=== PATIENT | female | born 1990 | race Asian ===

== ENCOUNTER 2016-12-18 04:05 | Inpatient (IN) | payer OTHER ==
[~2016-12-18] VITALS: Ht 162.6 cm; Wt 75.9 kg
[2016-12-26] MEDS ORDERED: LACTATED RINGER'S 1000ML 1,000 ML IV PRN (07:37)
[2016-12-26] MEDS ORDERED: LACTATED RINGER'S 1000ML 500 ML IV PRN ×2 (07:37→14:22)
[2016-12-26] MEDS ORDERED: OXYTOCIN 30 UNITS/500ML NSS IV PRN (07:45)
[2016-12-26] MEDS ORDERED: PRENTAB26 PO (08:10)
[2016-12-26 08:12] VITALS: Ht 162.6 cm; Wt 75.9 kg
[2016-12-26] MEDS: LACTATED RINGER'S 1000ML 1,000 ML IV SCH ×3 (08:43→22:42)
[2016-12-26 08:50] LABS: MEAN CELL VOLUME 94.4 fL (80-100); MEAN CORPUSCULAR HEMOGLOBIN 31.6 pg (25-34); MEAN CORPUSCULAR HGB CONC 33.5 g/dl (32-36); MEAN PLATELET VOLUME 12.1 fL (7.4-10.4); PLATELET COUNT 176 K/uL (130-400); RED BLOOD COUNT 3.92 M/uL (4.2-5.4); WHITE BLOOD COUNT 7.49 K/uL (4.8-10.8)
[2016-12-26] MEDS ORDERED: FENTANYL CITRATE INJ 50 MCG/1 ML 2 ML VIAL ONE (13:11)
[2016-12-26] MEDS ORDERED: BUPIVACAINE 0.25% 30 ML VIAL ONE (13:11)
[2016-12-26] MEDS ORDERED: EpHEDrine SULFATE INJ 50 MG/ML AMP ONE (13:11)
[2016-12-26] MEDS ORDERED: FENTANYL 2MCG/ML ROPIV 1.25MG/ML 100ML BAG EPI ONE (13:12)
[2016-12-26] MEDS ORDERED: NALOXONE HCL INJ 1 MG in SODIUM CHLORIDE 0.9% 1000ML 1,000 ML IV PRN (14:22)
[2016-12-26] MEDS ORDERED: EpHEDrine SULFATE INJ 50 MG/ML AMP IV PRN (14:30)
[2016-12-26] MEDS ORDERED: NALOXONE HCL INJ 0.4 MG/1 ML VIAL/CARP IV PRN (14:30)
[2016-12-26] MEDS ORDERED: DiphenhydrAMINE HCL 50 MG/ML VIAL IV PRN (14:30)
[2016-12-26] MEDS ORDERED: NALBUPHINE HCL INJ 10 MG/ML AMP IV PRN (14:30)
[2016-12-26] MEDS: FENTANYL 2MCG/ML ROPIV 1.25MG/ML 100ML BAG EPI PRN ×2 (19:03→22:42)
[2016-12-27] MEDS ORDERED: METHYLERGONOVINE MALEATE 0.2 MG/ML AMP ONE (01:32)
[2016-12-27] MEDS ORDERED: BENZOCAINE 20% AER SPR 82.5 GM CAN EXT PRN (01:45)
[2016-12-27] MEDS ORDERED: OXYCODONE/ACETAMINOPHEN 5-325 TAB PO PRN (01:45)
[2016-12-27] MEDS ORDERED: OXYTOCIN 30 UNITS/500ML NSS IV PRN (01:45)
[2016-12-27] MEDS ORDERED: DIPHTHERIA/TETANUS/PERTUSSIS 0.5 ML SYR/VIAL IM. ONE (01:45)
[2016-12-27] MEDS ORDERED: LANOLIN OINT EXT PRN ×2 (01:45)
[2016-12-27] MEDS ORDERED: ACETAMINOPHEN 325 MG TAB PO PRN (01:45)
[2016-12-27] MEDS ORDERED: HYDROCORTISONE ACETATE 25 MG SUPP PR PRN (01:45)
[2016-12-27] MEDS ORDERED: SUPERCREAM 0.870 % 15GM JAR EXT PRN (01:45)
[2016-12-27] MEDS ORDERED: ACETAMINOPHEN/CODEINE 300/30MG TAB PO PRN ×2 (01:45)
[2016-12-27] MEDS ORDERED: METHYLERGONOVINE MALEATE 0.2 MG/ML AMP IM ONE (01:45)
[2016-12-27] MEDS ORDERED: OXYTOCIN 30 UNITS/500ML NSS IV ONE (02:02)
[2016-12-27] MEDS: IBUPROFEN 600 MG TAB PO PRN ×3 (03:19→22:02)
[2016-12-27 05:10] VITALS: BP 114/70; PULSE 76; TEMP 36.7
--- NOTE | 2016-12-27 07:12 | DELIVERY SUMMARY ---
DATE OF OPERATION: 12/27/2016 PREOPERATIVE DIAGNOSES: 1. Intrauterine at 41 and 2/7 weeks. 2. Favorable cervix. POSTOPERATIVE DIAGNOSES: 1. Intrauterine at 41 and 2/7 weeks. 2. Favorable cervix. 3. Maternal pain. PROCEDURES: 1. Pitocin induction. 2. Epidural anesthesia. 3. Amniotomy. 4. Outlet vacuum-assisted vaginal delivery. 5. Second degree perineal laceration with repair. SURGEON: Alexandra Kaplan MD ANESTHESIA: Epidural. ESTIMATED BLOOD LOSS: 450 mL. DESCRIPTION OF PROCEDURE: The patient presented to labor and delivery at 41 and 1/7 weeks for post date induction. She was 4, 80, and -2. She underwent Pitocin augmentation/induction until entering into a regular contraction pattern and then underwent an epidural anesthesia. She then underwent amniotomy for clear fluid. She progressed slowly with the Pitocin augmentation with need for intrauterine pressure catheter to titrate Pitocin. She progressed to complete, complete in +1 station, labor down for over an hour, and then pushed effectively to complete, complete in +4 station. With the of the head, the patient lost control because of discomfort. So, I made the decision to apply the vacuum to assist the outlet. The vacuum was applied x1 and popped off. It was reapplied and then the head was delivered. It was DOA. The head restituted to the right and I was immediately able to deliver the anterior shoulder. A double nuchal cord was then identified and easily reduced and the rest of the was then delivered without difficulty. The cord was clamped and cut, and the was taken to the awaiting nurses for drying and attention as he was floppy. Cord blood and gases were obtained. Placenta was delivered spontaneously intact with a three vessel cord. A second degree perineal laceration was repaired in a normal standard fashion with 3-0 Vicryl. Hemostasis was obtained with dilute Pitocin, fundal massage and IM Methergine. Estimated blood loss was 450 mL. Apgars were 8 and 9. Mother and baby doing well at the end of the delivery. I attest to the content of the Intraoperative Record and any orders documented therein. Any exceptio ns are noted below.
[2016-12-27 08:00] VITALS: BP 95/60; PULSE 74; TEMP 36.5; O2SAT 97
--- NOTE | 2016-12-27 08:04 | Progress Note ---
Subjective Dec 27, 2016. Subjective conversation w/ patient, physical exam, lab review Ambulation: ambulating normally Passing Gas: Yes Diet Tolerance: Regular Diet Lochia: Moderate Feeding Type: Bottle Feeding Pain: Complains of pain 2/10 controlled with pain medication Review of Systems Constitutional: No chills, No fever Respiratory: No cough, No dyspnea at rest, No dyspnea on exertion, No shortness of breath, No sputum, No wheezing Cardiac: No chest pain, No palpitations Breast: No breast lump Abdomen: No constipation, No diarrhea, No nausea, No pain, No vomiting Female : No dysuria Patient was seen at the bedside. No acute event overnight. Denies headache. Objective Vital Signs Date Time Temp Pulse Resp B/P Pulse Ox O2 Delivery O2 Flow Rate FiO2 12/27/16 05:10 36.7 76 18 114/70 Room Air Physical Exam General Appearance: WELL-APPEARING, WD/WN Respiratory/Chest: lungs clear, normal breath sounds Cardiovascular: regular rate, rhythm Abdomen: normal bowel sounds, non tender, soft Fundus: Firm, Tender (appropriate for ), Relation to Umbilicus (1cm below the umbilicus) Extremities: non-tender, no pedal edema, no calf tenderness Laboratory Results Last 24 Hours Test 12/26/16 08:25 White Blood Count 7.49 K/uL Red Blood Count 3.92 M/uL Hemoglobin 12.4 g/dL Hematocrit 37.0 % Mean Corpuscular Volume 94.4 fL Mean Corpuscular Hemoglobin 31.6 pg Mean Corpuscular Hemoglobin Concent 33.5 g/dl RDW Standard Deviation 49.8 fL RDW Coefficient of Variation 14.6 % Platelet Count 176 K/uL Mean Platelet Volume 12.1 fL Medications Current Inpatient Medications Medications (Trade) Dose Ordered Sig/Steven Route Start Time Stop Time Status Last Admin Dose Admin Oxytocin (Pitocin IV) 30 units UD PRN IV 12/27/16 01:45 01/26/17 01:44 Benzocaine (Dermoplast Aero Spr) 1 appln PRN PRN EXT 12/27/16 01:45 01/26/17 01:44 12/27/16 04:50 82.5 APPLN Cocaine HCl (Supercream 0.870% Cr) BID PRN EXT 12/27/16 01:45 01/10/17 01:44 Hydrocortisone Acetate (Anusol Hc Supp) 25 mg BID PRN HI 12/27/16 01:45 01/26/17 01:44 Lanolin (Lanolin Oint) PRN PRN EXT 12/27/16 01:45 01/26/17 01:44 Prenat Multivit/ Hair Stylist/Iron/Folic Ac ( Vitamin Tab) 1 tab DAILY PO 12/27/16 08:00 01/26/17 07:59 Ibuprofen (Motrin Tab) 600 mg Q4H PRN PO 12/27/16 01:45 01/26/17 01:44 12/27/16 03:19 600 MG Acetaminophen (Tylenol Tab) 650 mg Q6H PRN PO 12/27/16 01:45 01/26/17 01:44 Acetaminophen/ Codeine Phosphate (Tylenol w/ Codeine #3 Tab) 1 tab Q4H PRN PO 12/27/16 01:45 01/26/17 01:44 Acetaminophen/ Codeine Phosphate (Tylenol w/ Codeine #3 Tab) 2 tab Q4H PRN PO 12/27/16 01:45 01/26/17 01:44 Docusate Sodium (coLACE CAP) 100 mg BID PO 12/27/16 08:00 01/26/17 07:59 Assessment and Plan Post- Day#: 0 Continue Routine Care: A/P This is a 26 y/o female, , had normal vaginal delivery. She is ambulating and clinically stable. Plan: - Vitals sings are reviewed and WNL (Tmax 36.7) - Hgb is 12.4 today - Blood type O+, GBS -, Rubella Immune - Encourage ambulation, monitor and control pain with ibuprofen prn, continue with regular diet and monitor lochia - Encourage breast feeding and educate about breast feeding Resident Physician Supervision Note: I interviewed and examined the patient. Discussed with Dr. Lucio and agree with findings and plan as documented in the note. Any exceptions or clarifications are listed here: Doing well. Routine pp care. Documented By: Alexandra Kaplan
[2016-12-27] MEDS: PRENATAL VITAMIN TAB PO SCH (08:40)
[2016-12-27] MEDS: DOCUSATE SODIUM 100 MG CAP PO SCH ×2 (08:40→20:47)
--- NOTE | 2016-12-27 10:21 | Anesthesia Procedure Note ---
Anesthesia Epidural Removal Nt Date & Time Dec 27, 2016 at 10:21 Vital Signs Pain Intensity: 0.0 Vital Signs Past 12 Hours Date Time Temp Pulse Resp B/P Pulse Ox O2 Delivery O2 Flow Rate FiO2 12/27/16 08:00 36.5 74 18 95/60 97 Room Air 12/27/16 08:00 97 Room Air 12/27/16 05:10 36.7 76 18 114/70 Room Air Notes Mental Status: alert / awake / arousable, participated in evaluation Nausea / Vomiting: adequately controlled Pain: adequately controlled Airway Patency, RR, SpO2: stable & adequate BP & HR: stable & adequate Hydration State: stable & adequate Neuraxial Anesthesia: was administered Anesthetic Complications: no major complications apparent, pt satisfied with anesthetic care Epidural: removed without complications, with tip intact
[2016-12-27 11:50] VITALS: BP 92/57; PULSE 86; TEMP 36.6; O2SAT 96
[2016-12-27 16:30] VITALS: BP 90/55; PULSE 96; TEMP 36.5; O2SAT 96
[2016-12-27 20:45] VITALS: BP 93/60; PULSE 88; TEMP 36.4; O2SAT 96
[2016-12-28] VITALS: BP 91/58; PULSE 94; TEMP 36.4; O2SAT 97
--- NOTE | 2016-12-28 07:25 | Progress Note ---
Subjective Dec 28, 2016. Subjective conversation w/ patient, physical exam, lab review Ambulation: ambulating normally Voiding: no voiding problems Passing Gas: Yes Diet Tolerance: Regular Diet Lochia: Moderate Feeding Type: Bottle Feeding Pain: Complains of pain, 3/10, improves with medication Review of Systems Constitutional: No chills, No fever Respiratory: No cough, No shortness of breath Cardiac: No chest pain Breast: No breast lump Abdomen: No constipation, No diarrhea, No nausea, No pain, No vomiting Female : No dysuria Patient was seen overnight. No acute events overnight. Denies headache. Objective Vital Signs Date Time Temp Pulse Resp B/P Pulse Ox O2 Delivery O2 Flow Rate FiO2 12/28/16 00:00 97 Room Air 12/28/16 00:00 36.4 94 16 91/58 97 Room Air 12/27/16 20:45 36.4 88 18 93/60 96 Room Air 12/27/16 16:30 36.5 96 18 90/55 12/27/16 16:30 96 Room Air 12/27/16 11:50 36.6 86 16 92/57 96 Room Air 12/27/16 08:00 36.5 74 18 95/60 97 Room Air 12/27/16 08:00 97 Room Air Physical Exam General Appearance: WELL-APPEARING, WD/WN Respiratory/Chest: chest non-tender, lungs clear, normal breath sounds Cardiovascular: regular rate, rhythm Abdomen: normal bowel sounds, non tender, soft Fundus: Firm, Relation to Umbilicus (2-3cm below) Extremities: non-tender, no pedal edema, no calf tenderness Laboratory Results Last 24 Hours Test 12/28/16 04:44 Assessment and Plan Post- Day#: 1 Continue Routine Care: A/P This is a 26 y/o female , PPD #1. s/p normal vaginal delivery. - Vitals signs are reviewed and WNL (Tmax 36.7) - Hgb is 12.4 (12/26), today hgb pending - Blood type O+, antibody neg, Rubella immune, GBS neg - Routine care - Encourage ambulation, monitor and control pain with medication as needed, continue with regular diet as tolerated and monitor lochia - Stool softeners and sit bath recommended - Encourage breast feeding and educate about breast feeding. Resident Physician Supervision Note: I was present with Dr. Lucio during the history and exam. I discussed the case with the resident and agree with the findings and plan as documented in the note. Any exceptions or clarifications are listed here: doing well. getting nursing support. routine care. Documented By: Noemy Jones
[2016-12-28 08:50] VITALS: BP 99/66; PULSE 74; TEMP 36.4; O2SAT 97
[2016-12-28] MEDS: DOCUSATE SODIUM 100 MG CAP PO SCH ×2 (08:58→19:42)
[2016-12-28] MEDS: PRENATAL VITAMIN TAB PO SCH (08:58)
[2016-12-28] MEDS: IBUPROFEN 600 MG TAB PO PRN ×2 (09:03→23:57)
[2016-12-28 10:53] LABS: HEMATOCRIT 29.2 % (37-47)
[2016-12-28 14:45] VITALS: BP 97/59; PULSE 86; TEMP 36.6; O2SAT 97
[2016-12-28 23:00] VITALS: BP 109/73; PULSE 102; TEMP 36.5
--- NOTE | 2016-12-29 07:07 | Progress Note ---
Subjective Dec 29, 2016. Subjective conversation w/ patient, physical exam, lab review Ambulation: ambulating normally Voiding: no voiding problems Passing Gas: Yes Diet Tolerance: Regular Diet Lochia: Small Feeding Type: Breast Feeding Pain: 2/10, improves with medication Comment: Patient was seen at the bed side. No acute event overnight. Review of Systems Constitutional: No chills, No fever Respiratory: No cough, No shortness of breath Cardiac: No chest pain Abdomen: No diarrhea, No nausea, No pain, No vomiting Female : No dysuria Denies headache. Objective Vital Signs Date Time Temp Pulse Resp B/P Pulse Ox O2 Delivery O2 Flow Rate FiO2 12/28/16 23:00 36.5 102 18 109/73 Room Air 12/28/16 23:00 Room Air 12/28/16 14:45 97 Room Air 12/28/16 14:45 36.6 86 16 97/59 97 Room Air 12/28/16 08:50 36.4 74 16 99/66 97 Room Air 12/28/16 08:50 97 Room Air Physical Exam General Appearance: WELL-APPEARING, WD/WN Respiratory/Chest: chest non-tender, lungs clear, normal breath sounds Cardiovascular: regular rate, rhythm Abdomen: normal bowel sounds, non tender, soft Fundus: Firm, Relation to Umbilicus (2-3 cm below ) Extremities: non-tender, no pedal edema Laboratory Results Last 24 Hours Test 12/28/16 09:02 Hemoglobin 9.5 g/dL Hematocrit 29.2 % Medications Current Inpatient Medications Medications (Trade) Dose Ordered Sig/Steven Route Start Time Stop Time Status Last Admin Dose Admin Oxytocin (Pitocin IV) 30 units UD PRN IV 12/27/16 01:45 01/26/17 01:44 Benzocaine (Dermoplast Aero Spr) 1 appln PRN PRN EXT 12/27/16 01:45 01/26/17 01:44 12/27/16 04:50 82.5 APPLN Cocaine HCl (Supercream 0.870% Cr) BID PRN EXT 12/27/16 01:45 01/10/17 01:44 Hydrocortisone Acetate (Anusol Hc Supp) 25 mg BID PRN [place] 12/27/16 01:45 01/26/17 01:44 Lanolin (Lanolin Oint) PRN PRN EXT 12/27/16 01:45 01/26/17 01:44 Prenat Multivit/ Pepin/Iron/Folic Ac ( Vitamin Tab) 1 tab DAILY PO 12/27/16 08:00 01/26/17 07:59 12/28/16 08:58 1 TAB Ibuprofen (Motrin Tab) 600 mg Q4H PRN PO 12/27/16 01:45 01/26/17 01:44 12/28/16 23:57 600 MG Acetaminophen (Tylenol Tab) 650 mg Q6H PRN PO 12/27/16 01:45 01/26/17 01:44 Acetaminophen/ Codeine Phosphate (Tylenol w/ Codeine #3 Tab) 1 tab Q4H PRN PO 12/27/16 01:45 01/26/17 01:44 Acetaminophen/ Codeine Phosphate (Tylenol w/ Codeine #3 Tab) 2 tab Q4H PRN PO 12/27/16 01:45 01/26/17 01:44 Docusate Sodium (coLACE CAP) 100 mg BID PO 12/27/16 08:00 01/26/17 07:59 12/28/16 19:42 100 MG Assessment and Plan Post- Day#: 2 Continue Routine Care: A/P: This is a 26y/o female, , s/p normal vaginal delivery. She is ambulating and clinically stable to discharge. - Vital signs are reviewed and WNL (Tmax 36.6 ) - Hgb is --> 9.5 (12/28) - Blood type O+, GBS neg, Rubella Immune - No signs of depression. - Routine care - Discussed resting, feeding, pain control, mastitis, control, follow up in 6 weeks and reasons to call sooner, if necessary. - Continue with pain medication as needed, and continue vitamins. - Encourage breast feeding and educate about breast feeding - Patient understands and keen for home. - Plan to discharge home Resident Physician Supervision Note: I interviewed and examined the patient. Discussed with Dr. Lucio and agree with findings and plan as documented in the note. Any exceptions or clarifications are listed here: [None] Documented By: Naif Shannon
--- NOTE | 2016-12-29 07:29 | Discharge Instructions ---
Discharge Instructions Date of Service Dec 27, 2016. Admission Reason for Admission: Induction Discharge Discharge Diagnosis / Problem: S/p normal vaginal delivery Discharge Goals Goal(s): Routine recovery after delivery Medications Continue Dispensed Medications: supercream, dermaplast, tucks, lansinoh Activity Recommendations Activity Limitations: as noted below . Instructions / Follow-Up Instructions / Follow-Up ACTIVITY RECOMMENDATIONS: * Gradual return to full activity over the next 2-3 weeks. * No lifting - nothing heavier than baby over the next 2-3 weeks. * Do not engage in vigorous exercise, sexual activity or sports until cleared by your physician. * Do not drive or operate any motorized equipment until cleared by your physician. * You may shower/bathe daily. MEDICATIONS: For discomfort or pain, you may use Acetaminophen (Tylenol), Ibuprofen (Advil), or Naproxen (Aleve) following the package directions. For constipation you may use Colace following the package directions. BREAST CARE: If you are not breast feeding: * Wear a supportive bra 24 hours a day for one to two weeks. * Avoid stimulating your breasts and nipples as much as possible during the first few weeks after delivery. * When taking a shower, have the warm water hit your back, not breasts. * When your breasts feel full, apply ice packs. Usually three to four times a day helps ease the discomfort. * Take a mild pain medication (Tylenol / Motrin) when you are uncomfortable. If breast feeding: * Use breast milk to lubricate nipples. Lansinoh cream may be used for sore nipples. You do not need to remove cream prior to breast feeding. If using a different brand of cream, check the label for directions regarding removal of cream prior to nursing. * Wear a supportive bra. * If having problems with breasts or breast feeding, call a wardrobe image consultant or your health care provider. EPISIOTOMY CARE: After delivery, if you have an episiotomy (stitches), the following steps will ease discomfort and aid healing. * For the first 24 hours after delivery, place ice packs next to your episiotomy to help reduce swelling. * After the first 24 hour-period, sitz baths, either portable or in the tub, are suggested. A shower with a shower arm sprayed over the episiotomy may be comforting. * Lenore care should be done after each voiding and bowel movement. Squirt warm water from a plastic bottle over the perineum (region of the body between the anus and urinary opening) and pat dry. * Use Dermoplast to ease discomfort. Shake container. [place] directly over the episiotomy. Place a Tucks on a clean sanitary pad next to your episiotomy. SPECIAL CARE INSTRUCTIONS: When you are discharged from the hospital, it is important for you to follow the instructions listed below: * During the first week at home, you should be able to care for yourself and your baby. In addition, the usual light household activities are encouraged. * Limit your activities to the way you feel. Do not try to clean the house or move furniture. Be sensible. * If you actively engage in sports and have done so up until the time of your delivery, you may resume these activities as soon as you feel able. This may take up to one month or even longer. Use good judgment. * Continue to take your vitamins for at least six weeks after the of your baby. * Your diet need not be limited unless you were on a special diet before your delivery. Breast-feeding mothers need around 2500 calories per day and at least 64-80 ounces of fluid per day (8 to 10 glasses). * You should eat foods from the four major food groups. Crash diets or fad diets are to be avoided. Eating lean meats, fresh fruits and vegetables, low-fat dairy products, high fiber foods and a regular exercise program, will help you get back to your pre- weight without putting your health at risk. * Constipation is sometimes a problem after delivery. Take a mild laxative as needed. If breast feeding, Milk of Magnesia is acceptable to use. You may use a suppository or Fleets enema if no episiotomy. * A daily shower or tub bath is suggested. Be sure to thoroughly and gently dry the perineum. * A bloody vaginal discharge will usually continue until around four weeks post . A small amount of bleeding may continue for as long as six weeks. Vaginal discharge changes from the bright red bleeding after delivery to pink then brownish and finally yellowish-pink before becoming white and disappearing. * Bleeding may increase with activity. Your first period may come in 4-8 weeks. If you are breast feeding, your period may be delayed even longer. * [place] (sex) can begin whenever both you and your partner feel comfortable and do not have any form of genital infection. It is recommended that you wait at least six weeks for internal and external healing to occur. If you have questions, please talk to your health care practitioner. A condom should be used to prevent infection and . * Foreplay, gentle intercourse and lubrication is very important the first several times to prevent pain. A water-based lubricant such as K-Y jelly or Astroglide may be used. * If you have RH negative blood and your baby is RH positive, you will receive RHOGAM by injection prior to discharge. The nurse will give you a card to keep with you that has the date and place that you received RHOGAM after delivery. * During your care, you had a Rubella screen done to check for the presence of rubella antibodies in your blood. If your test was negative, you will receive a Rubella vaccine prior to discharge. This vaccine may cause a fever, soreness at the injection site and flu-like symptoms. If these symptoms persist, notify your health care practitioner. is not advised for one month after a Rubella vaccine. * Verbalizes understanding of car seat law as reviewed with patient nursing. * Car Seat hand-out given and reviewed with patient by nursing. * Shaken baby information reviewed with patient by nursing. Call you doctor if: * Heavy bleeding (saturating several pads an hour) or passing clots the size of your fist. * A fever >101 degrees F (38.3 degrees C) on two occasions four hours apart and /or chills. * Unusual pain in the pelvic or vaginal areas. * "Baby Blues" lasting longer than two weeks. If you have any questions or concerns, call your health care practitioner at . FOLLOW UP VISIT: * Please call the office at to schedule a 6 week examination. It is important you keep this appointment. It is important for you to make arrangements for either yearly or twice yearly check-ups thereafter. Current Hospital Diet Patient's current hospital diet: Regular OB Diet Discharge Diet Recommended Diet: Regular Diet Pending Studies Studies pending at discharge: no Medical Emergencies . Who to Call and When: Medical Emergencies: If at any time you feel your situation is an emergency, please call 1 immediately. . Non-Emergent Contact Non-Emergency issues call your: Operator [employer] Call Non-Emergent contact if: you have a fever, temperature is above 101 . . "Provider Documentation" section prepared by Ольга Lucio. VTE Core Measure Inpt VTE Proph given/why not?: Treatment not indicated
[2016-12-29 07:44] VITALS: BP 100/66; PULSE 76; TEMP 36.4
[2016-12-29 07:45] VITALS: BP 100/66; PULSE 76; TEMP 36.4; O2SAT 96
[2016-12-29 07:51] VITALS: O2SAT 96
[2016-12-29 08:08] VITALS: O2SAT 96
[2016-12-29] MEDS: PRENATAL VITAMIN TAB PO SCH (08:38)
[2016-12-29] MEDS: DOCUSATE SODIUM 100 MG CAP PO SCH (08:38)
--- NOTE | 2017-01-03 11:20 | DISCHARGE SUMMARY ---
ADMISSION DIAGNOSIS: Intrauterine at 41 and 1/7th weeks. DISCHARGE DIAGNOSES: 1. Same. 2. Intolerance of pushing. HISTORY OF PRESENT ILLNESS: The patient is a 26-year-old female, 1, para 0 with an EDC of 12/18/2016 by last menstrual period for an estimated gestational age of 41 and 1/7th weeks who presented for a postdates induction. Her course was unremarkable. On admission, she was kirit every 8-10 minutes. She had no loss of fluid or uterine bleeding. She noted good movements for the rest of her history and physical, please see her scanned history and physical. PHYSICAL EXAMINATION: VITAL SIGNS: She is afebrile and her vital signs are stable. ABDOMEN: Gravid, soft and nontender. PELVIS: Her cervix is 4 cm dilated, 70% effaced, minus 2 station. She is kirit every 8-10 minutes and has a category 1 strip. ASSESSMENT: This is a 41 weeks gestational age postdates induction with a reassuring category 1 tracing. HOSPITAL COURSE: The patient was admitted. She underwent Pitocin for augmentation. She received an epidural in the afternoon of hospital day #1. After her epidural and amniotomy for clear fluid, the baby started having variables but overall very reassuring category 2 strip. She began making cervical change to about 4:00 p.m. on the date of admission. She had an IUPC placed at that time showing adequate contractions, at approximately 10:00 p.m., the patient had a rim, continued category 2 tracing with some mild variables. The patient pushed very effectively after she labored down for approximately 2 hours until . At that point, she lost control, inability to push secondary to pain. I decided to assist with an outlet vacuum. The vacuum was applied at +4 to +5 station with 1 pop off, the vacuum was reapplied and the head was delivered slowly in direct occiput anterior presentation. Nuchal cord x1 was reduced. The head restituted to ROSINA and then I was able to deliver the anterior shoulder and the rest of the baby. Cord blood and gases were obtained. Placenta delivered spontaneously intact with a 3-vessel cord. Cervix, sulci and rectum was intact. Second degree laceration was repaired. Estimated blood loss 400 mL. Hemostasis obtained with dilute Pitocin, massage and IM Methergine. The patient's course was uncomplicated. She tolerated a regular diet, ambulated without difficulty, her bleeding slowed and she was . She was discharged home on day #2. Her hemoglobin on discharge was 9.5.
== END 2016-12-29 14:10 | disposition home or self-care (01) | DRG 775 ==
LOC: C.LD 12-26 07:23 → C.OBG 12-27 05:15
PROVIDERS: ADMIT Obstetrics & Gynecology; ATTEND Obstetrics & Gynecology
PROC: 10D07Z6 Extraction of Products of Conception, Vacuum, Via Natural or Artificial Opening (ICD-10-PCS; principal; 2016-12-27)
PROC: 0KQM0ZZ Repair Perineum Muscle, Open Approach (ICD-10-PCS; principal; 2016-12-27)
DX: O48.0 Post-term pregnancy (principal); O26.873 Cervical shortening, third trimester; O70.1 Second degree perineal laceration during delivery; Z37.0 Single live birth; Z3A.41 41 weeks gestation of pregnancy; O69.1XX0 Labor and delivery complicated by cord around neck, with compression, not applicable or unspecified

== ENCOUNTER → 2017-11-16 | Outpatient (CLI) | payer OTHER ==
[~2017-11-16] MED LIST: PRENTAB26 PO
[2017-11-16 16:32] LABS: BASO % 0.2 %; BASO ABS # 0.02 K/uL (0-0.2); EOS % 1.4 %; EOS ABS # 0.14 K/uL (0-0.5); HEMATOCRIT 39.1 % (37-47); HEMOGLOBIN 12.7 g/dL (12.0-16.0); IG# 0.02 K/uL (0.00-0.02); LYMPH % 20.7 %; LYMPH ABS # 2.13 K/uL (1.2-3.4); MEAN CELL VOLUME 90.3 fL (80-100); MEAN CORPUSCULAR HEMOGLOBIN 29.3 pg (25-34); MEAN CORPUSCULAR HGB CONC 32.5 g/dl (32-36); MEAN PLATELET VOLUME 11.3 fL (7.4-10.4); MONO % 5.6 %; MONO ABS # 0.58 K/uL (0.11-0.59); NEUT % 71.9 %; NEUT ABS # 7.41 K/uL (1.4-6.5); PLATELET COUNT 241 K/uL (130-400); RED CELL DISTRIBUTION WIDTH CV 13.4 % (11.5-14.5); RED CELL DISTRIBUTION WIDTH SD 44.5 fL (36.4-46.3)
== END | disposition home or self-care (01) ==
LOC: C.LAB1850 15:24
PROVIDERS: ATTEND Obstetrics & Gynecology
DX: Z34.81 Encounter for supervision of other normal pregnancy, first trimester (principal)

== ENCOUNTER → 2017-12-13 | Outpatient (CLI) | payer OTHER | END | disposition home or self-care (01) | LOC: C.LAB1850 16:11 | PROVIDERS: ATTEND Obstetrics & Gynecology | DX: Z34.82 Encounter for supervision of other normal pregnancy, second trimester (principal) ==

== ENCOUNTER → 2018-05-03 | Outpatient (CLI) | payer OTHER | END | disposition home or self-care (01) | LOC: C.LABSPEC 17:42 | PROVIDERS: ATTEND Obstetrics & Gynecology | DX: Z34.83 Encounter for supervision of other normal pregnancy, third trimester (principal) ==

== ENCOUNTER 2022-05-18 07:45 | Inpatient (IN) ==
[2022-05-18] MEDS ORDERED: LIDOCAINE 1% LOCAL 20 ML VIAL INFIL PRN (08:05)
[2022-05-18] MEDS ORDERED: OXYTOCIN 30 UNITS/500 ML BAG IV PRN ×3 (08:05→14:51)
[2022-05-18 08:30] LABS: Hematocrit (blood only) 31.6 % (34.1-44.9); Hemoglobin 9.8 g/dl (12.0-16.0); Mean Corpuscular Hemoglobin 28.3 pg (25.0-34.0); Mean Corpuscular Volume 91.3 fL (80.0-100.0); Mean Platelet Volume 11.6 fL (9.4-12.3); Platelet Count 235 K/uL (130-400); RDW Coefficient of Variation 14.6 % (11.5-14.5); Red Blood Count 3.46 M/uL (3.93-5.22)
--- NOTE | 2022-05-18 09:14 | History & Physical Report ---
Date of Service May 18, 2022 Assessment & Plan (1) Encounter for induction of labor: (2) H/O shoulder dystocia in prior , currently : (3) Gestational diabetes mellitus (GDM) affecting , antepartum: Plan Admit, iv, labs. fhts categ 1. Begin pitocin, plan arom. Patient counseled previously about direct c/s due to prior shoulder dystocia and declines. Wants induction. Epidural when desires. Admission and Anticipated Discharge Date Admission Date: May 18, 2022 History of Present Illness Chief Complaint: planned induction Primary Care Provider: NO PCP 32yo at 39 wk ega presents to L&D for planned induction. Denies rom, vb, ctx. +FM. Notes prior delivery complicated by shoulder dystocia and felt she had the epidural too late and did not take effect. PNC c/b 1. GDM--last efw 27% done 04/26 2. History of prior shoulder dystocia, declines direct c/s. PNl RHpos, RI, GBS neg OBH: x 2, last complicated by shoulder dystocia. [facility] MGR: nl paps, no std Allergies Allergy/AdvReac Type Severity Reaction Status Date / Time No Known Allergies Allergy Verified 05/12/22 15:52 Home Medications Medication Instructions Recorded Confirmed Type prenat.vits,italia,[id number] 1 tab PO DAILY 10/15/21 05/17/22 History acetone (urine) test (Ketone Urine #50 ea 03/07/22 05/12/22 Rx Test strips) blood sugar diagnostic (OneTouch #150 ea 03/07/22 05/12/22 Rx Verio test strips) blood-glucose meter (OneTouch #1 ea 03/07/22 05/12/22 Rx Verio Reflect Meter) lancets 33 gauge (OneTouch Delica #150 ea 03/07/22 05/12/22 Rx Lancets) Vitamin 1 tab PO DAILY 05/18/22 05/18/22 History Patient History Medical History (Updated 05/18/22 @ 09:13 by Noemy Jones MD, FACOG) No known health problems Surgical History No history of previous surgery Family History Mother Heart disease Grandmother (Maternal) Heart disease Denies family history of Ovarian cancer Prostate cancer Breast cancer Social History Smoking Status: Never smoker Second Hand Exposure: No; Do You Dip or Chew Tobacco: No; Tobacco Cessation Education Requested by Patient: No Hx Alcohol Use: No Hx Substance Use: No Preferred Language: Czech Communication Ability: Effective Cake Icer And Packer Required: No Beliefs That Will Affect Care: None marital status: marital status details: Lenin Berry (30) [phone] Current Living Situation: Spouse Current Living Situation Comment: Lives with son, daughter, mom, and dad current occupational status: employed 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 Other Information That Helps Us Care for You: No Feels Safe at Home: Yes Safety Concerns: Feels Safe At This Time Assistive Devices: None Review of Systems as per Subjective / HPI Physical Exam Constitutional: WD/WN, vitals as above Respiratory: normal respiratory effort, lungs clear to auscultation Cardiovascular: Rate/Rhythm: regular rate and regular rhythm Gastrointestinal (Abdomen): soft gravid nt efw 8-9# Musculoskeletal: no edema nontender calves Neurologic: grossly normal Psychiatric: A+Ox3, euthymic affect Genitourinary: Manual OB Exam: + cervical dilation (2-3cm), + cervical effacement 50% and + station -2 OB Exam Monitor Tracing: + external FHT monitor used, + external uterine monitor used, + category I and + normal FHT variability Results & Data ([facility]) Vital Signs (Past 12 Hours) Vital Signs Temp Pulse Resp BP 05/18/22 08:04 81 113/59 L 05/18/22 07:50 97.9 F 16 Coding Level of Care Code None Diagnoses Encounter for induction of labor Z34.90 H/O shoulder dystocia in prior , currently O09.299 Gestational diabetes mellitus (GDM) affecting , antepartum O24.419
[2022-05-18] MEDS: LACTATED RINGER'S 1,000 ML IV PRN ×2 (09:16→12:42)
--- NOTE | 2022-05-18 11:58 | Labor Progress Brief Note ---
Date of Service May 18, 2022 Subjective no pain with ctx Assessment & Plan (1) Encounter for induction of labor: (2) H/O shoulder dystocia in prior , currently : (3) Gestational diabetes mellitus (GDM) affecting , antepartum: Plan will see how arom helps labor pattern. c/w pit. fhts categ 1. epidural ok whenever pt desires. Admission and Anticipated Discharge Date Admission Date: May 18, 2022 Physical Exam Constitutional: WD/WN, vitals as above Genitourinary: Manual OB Exam: + cervical dilation 3 cm, + cervical effacement (75%), + station -2 and + amniotic fluid (arom) clear OB Exam Monitor Tracing: + external FHT monitor used, + external uterine monitor used (q2 pit at 9), + category I and + normal FHT variability Results & Data ([facility]) Vital Signs (Past 12 Hours) Vital Signs Temp Pulse Resp BP 05/18/22 11:24 16 05/18/22 11:24 16 05/18/22 11:23 77 106/67 05/18/22 10:25 16 05/18/22 10:25 16 05/18/22 10:24 78 102/56 L 05/18/22 08:05 16 05/18/22 08:05 16 05/18/22 09:23 79 16 111/61 05/18/22 08:04 81 113/59 L 05/18/22 07:50 97.9 F 16 Coding Level of Care Code None Diagnoses Encounter for induction of labor Z34.90 H/O shoulder dystocia in prior , currently O09.299 Gestational diabetes mellitus (GDM) affecting , antepartum O24.419
[2022-05-18] MEDS ORDERED: ePHEDrine sulfate 50 MG/ML AMP ONE (12:16)
[2022-05-18] MEDS ORDERED: LIDOCAINE 2%/EPINEPHRINE 1:200,000 20 ML SDV ONE (12:17)
[2022-05-18] MEDS ORDERED: fentaNYL 2MCG/ML ROPIVACAINE 1.25MG/ML 100 ML BAG EPI ONE (12:17)
[2022-05-18] MEDS ORDERED: SODIUM CHLORIDE 0.9% INJ 10 ML VIAL ONE (12:17)
[2022-05-18] MEDS ORDERED: fentaNYL citrate 100 MCG/2 ML VIAL ONE (12:17)
[2022-05-18] MEDS ORDERED: BUPIVACAINE 0.25% 30 ML VIAL ONE (12:17)
[2022-05-18] MEDS ORDERED: diphenhydrAMINE 50 MG/ML VIAL IV PRN (12:25)
[2022-05-18] MEDS ORDERED: NALBUPHINE HCL INJ 10 MG/ML AMP IV PRN (12:25)
[2022-05-18] MEDS ORDERED: ePHEDrine sulfate 50 MG/ML AMP IV PRN (12:25)
[2022-05-18] MEDS ORDERED: fentaNYL 2MCG/ML ROPIVACAINE 1.25MG/ML 100 ML BAG EPI PRN (12:25)
[2022-05-18] MEDS ORDERED: NALOXONE HCL 0.4 MG/1 ML VIAL/CARP IV PRN (12:25)
[2022-05-18] MEDS ORDERED: NALOXONE HCL 1 MG in SODIUM CHLORIDE 0.9% 1000ML 1,000 ML IV PRN (12:25)
--- NOTE | 2022-05-18 12:25 | Anesthesiology Consultation ---
Date of Service May 18, 2022 Assessment & Plan (1) Encounter for pre-operative examination: Chart Review Chart Review: Patient NOT seen in Pre Admission Testing and Acceptable Risk for Labor Epidural Consults Requested none History Height/Weight Height: 5 ft 3 in Weight: 75.296 kg Allergies Allergy/AdvReac Type Severity Reaction Status Date / Time No Known Allergies Allergy Verified 05/12/22 15:52 Medications Home Medications Medication Instructions Recorded Confirmed Last Taken prenat.vits,italia,[id number] 1 tab PO DAILY 10/15/21 05/17/22 05/17/22 acetone (urine) test (Ketone Urine #50 ea 03/07/22 05/12/22 Unknown Test strips) blood sugar diagnostic (OneTouch #150 ea 03/07/22 05/12/22 Unknown Verio test strips) blood-glucose meter (OneTouch #1 ea 03/07/22 05/12/22 Unknown Verio Reflect Meter) lancets 33 gauge (OneTouch Delica #150 ea 03/07/22 05/12/22 Unknown Lancets) Vitamin 1 tab PO DAILY 05/18/22 05/18/22 05/17/22 10:00 Active Medications Generic Name Dose Route Start Last Admin Trade Name Freq PRN Reason Stop Dose Admin Oxytocin 30 units in 500 mls @ 9 mls/hr 05/18/22 08:05 05/18/22 11:25 Pitocin IV 05/20/22 08:04 0.54 units/hr .Q24H PRN 9 mls/hr Labor Induction/Augmentation Titration Protocol 0.54 UNITS/HR Lactated Ringer's 1,000 mls @ 125 mls/hr 05/18/22 08:05 05/18/22 12:10 Lr IV 05/20/22 08:04 999 mls/hr .Q8H PRN Infusion L&D Protocol Protocol Past Medical History Medical History (Updated 05/18/22 @ 12:25 by Ld Echeverria DO) No known health problems Past Family History Family History Mother Heart disease Grandmother (Maternal) Heart disease Denies family history of Ovarian cancer Prostate cancer Breast cancer Past Surgical History Surgical History No history of previous surgery Social History Smoking Status: Never smoker Do You Dip or Chew Tobacco: No Hx Alcohol Use: No Hx Substance Use: No substance use type: does not use Physical Exam Vital Signs Last Vital Signs Temp 97.9 F 05/18/22 07:50 Pulse 74 05/18/22 12:24 Resp 16 05/18/22 11:24 BP 120/86 05/18/22 12:24 Pulse Ox 100 05/18/22 12:20 Testing Laboratory Results 05/18/22 08:14 05/18/22 09:37 POC Glucose 96
--- NOTE | 2022-05-18 14:15 | Labor Progress Brief Note ---
Date of Service May 18, 2022 Subjective comfortable Assessment & Plan (1) Encounter for induction of labor: (2) H/O shoulder dystocia in prior , currently : (3) Gestational diabetes mellitus (GDM) affecting , antepartum: Plan some variables but now resolving with position change. regular ctx with pitocin. cx recently checked by nursing and 5cm/100. will reeval prn. if variables return remote from delivery, can consider iupc and amnioinfusion. Admission and Anticipated Discharge Date Admission Date: May 18, 2022 Physical Exam Constitutional: WD/WN, vitals as above Genitourinary: OB Exam Monitor Tracing: + external FHT monitor used, + external uterine monitor used (q2, pit at 9), + category II and + normal FHT variability Results & Data ([facility]) Vital Signs (Past 12 Hours) Vital Signs Temp Pulse Resp BP Pulse Ox 05/18/22 14:05 95 H 100 05/18/22 14:02 83 114/70 05/18/22 14:00 76 100 05/18/22 13:55 75 100 05/18/22 13:50 84 100 05/18/22 13:45 77 106/62 100 05/18/22 13:40 79 100 05/18/22 13:35 77 100 05/18/22 13:30 86 100 05/18/22 13:25 83 18 100 05/18/22 13:26 90 119/58 L 05/18/22 13:20 81 98 05/18/22 13:21 80 106/56 L 05/18/22 13:16 88 115/59 L 05/18/22 13:15 81 99 05/18/22 13:14 80 115/56 L 05/18/22 12:01 16 05/18/22 12:01 97.9 F 16 05/18/22 13:10 75 100 05/18/22 13:05 99 05/18/22 13:05 83 05/18/22 13:05 86 114/73 05/18/22 13:03 84 113/68 05/18/22 13:00 92 H 20 98 05/18/22 13:01 81 125/76 05/18/22 12:59 89 112/69 05/18/22 12:57 90 117/69 05/18/22 12:55 81 112/65 99 05/18/22 12:53 80 112/66 05/18/22 12:51 83 111/68 05/18/22 12:50 81 99 05/18/22 12:49 83 115/75 05/18/22 12:47 22 05/18/22 12:47 83 22 112/74 05/18/22 12:45 83 109/63 100 05/18/22 12:40 83 99 05/18/22 12:35 92 H 99 05/18/22 12:30 76 100 05/18/22 12:25 77 99 05/18/22 12:24 74 120/86 05/18/22 12:20 81 100 05/18/22 12:15 78 99 05/18/22 11:24 16 05/18/22 11:24 16 05/18/22 11:23 77 106/67 05/18/22 10:25 16 05/18/22 10:25 16 05/18/22 10:24 78 102/56 L 05/18/22 08:05 16 05/18/22 08:05 16 05/18/22 09:23 79 16 111/61 05/18/22 08:04 81 113/59 L 05/18/22 07:50 97.9 F 16 Coding Level of Care Code None Diagnoses Encounter for induction of labor Z34.90 H/O shoulder dystocia in prior , currently O09.299 Gestational diabetes mellitus (GDM) affecting , antepartum O24.419
[2022-05-18] MEDS ORDERED: DIPHTHERIA/TETANUS/PERTUSSIS 0.5 ML SYR/VIAL IM ONE (14:51)
[2022-05-18] MEDS ORDERED: HYDROCORTISONE ACETATE 25 MG SUPP PR PRN (14:51)
[2022-05-18] MEDS ORDERED: ACETAMINOPHEN 325 MG TAB PO PRN (14:51)
[2022-05-18] MEDS ORDERED: BENZOCAINE 20% AER SPR 82.5 GM CAN EXT PRN (14:51)
--- NOTE | 2022-05-18 14:57 | Delivery Summary ---
Vaginal Delivery Summary Date of Service May 18, 2022 Vaginal Delivery Summary The patient dilated to complete and pushed to deliver a viable female Apgars 9 and 9 via over intact perineum. Mouth and nose bulb suctioned at perineum. Shoulders and body delivered with ease. was vigorous and crying at . Cord clamped at 30 seconds of life and infant to maternal abdomen where the cord was then doubly clamped and cut. Placenta delivered spontaneously and intact, three-vessel cord. Hemostasis achieved with dilute pitocin and uterine massage and drainage of the bladder for approximately 300 cc under sterile conditions. Cervix and sulci intact. EBL 300 cc. Mother and baby stable in recovery. [facility] Vaginal Delivery Charge Delivery Type Details:
--- NOTE | 2022-05-18 18:51 | Anesthesia Procedure Note ---
Date of Service May 18, 2022 Anesthesia Post Epidural Note Vital Signs Vital Signs: Temp Pulse Resp BP Pulse Ox O2 Del Method 98.4 F 100 H 18 110/72 98 05/18/22 17:00 05/18/22 17:00 05/18/22 17:00 05/18/22 17:00 05/18/22 17:00 05/18/22 17:00 Pain Intensity Bilateral Abdomen: Pain Intensity: 2 Notes Mental Status: alert / awake / arousable and participated in evaluation Nausea / Vomiting: adequately controlled Pain: adequately controlled Airway Patency, RR, SpO2: stable & adequate BP & HR: stable & adequate Hydration State: stable & adequate Neuraxial Anesthesia: was administered and sensory block is resolving Anesthetic Complications: no major complications apparent and Pt Satisfied with anesthetic care Epidural: Removed without complications and With tip intact
--- NOTE | 2022-05-18 18:51 | Anesthesiology Progress Note ---
Date of Service May 18, 2022 Anesthesia Post Procedure Vital Signs Vital Signs: Temp Pulse Pulse Resp BP BP Pulse Ox 05/18/22 17:00 98.4 F 100 H 18 110/72 98 05/18/22 16:45 16 05/18/22 15:45 16 05/18/22 16:15 16 05/18/22 15:30 18 05/18/22 15:15 16 05/18/22 16:50 99 05/18/22 16:50 102 H 05/18/22 16:50 96 H 112/70 05/18/22 16:45 97 H 98 05/18/22 16:40 99 H 98 05/18/22 16:35 93 H 99 05/18/22 16:34 94 H 118/73 05/18/22 16:30 96 H 99 05/18/22 16:25 89 98 05/18/22 16:20 86 98 05/18/22 16:19 103 H 112/74 05/18/22 16:15 86 99 05/18/22 16:10 88 98 05/18/22 16:05 85 98 05/18/22 16:04 85 111/75 05/18/22 16:00 90 99 05/18/22 15:55 84 99 05/18/22 15:50 97 H 99 05/18/22 15:49 89 119/75 05/18/22 15:45 95 H 98 05/18/22 15:40 83 98 05/18/22 15:35 87 98 05/18/22 15:34 80 114/68 05/18/22 15:30 83 97 05/18/22 15:25 83 99 05/18/22 15:20 87 100 05/18/22 15:19 85 112/65 05/18/22 15:15 98 H 100 05/18/22 15:10 98 H 100 05/18/22 15:05 93 H 95 05/18/22 15:04 97 H 112/62 05/18/22 15:00 93 H 18 100 05/18/22 14:55 94 H 100 05/18/22 14:50 94 H 100 05/18/22 14:45 91 H 100 05/18/22 14:40 107 H 100 05/18/22 14:36 106 H 93 05/18/22 14:35 108 H 100 05/18/22 14:30 102 H 16 135/79 100 05/18/22 14:25 85 99 05/18/22 14:20 89 99 05/18/22 14:15 87 100 05/18/22 14:01 18 05/18/22 14:01 98.1 F 18 05/18/22 14:10 84 100 05/18/22 14:05 95 H 100 05/18/22 14:02 83 114/70 05/18/22 14:00 76 100 05/18/22 13:55 75 100 05/18/22 13:50 84 100 05/18/22 13:45 77 106/62 100 05/18/22 13:40 79 100 05/18/22 13:35 77 100 05/18/22 13:30 86 100 05/18/22 13:25 83 18 100 05/18/22 13:26 90 119/58 L 05/18/22 13:20 81 98 05/18/22 13:21 80 106/56 L 05/18/22 13:16 88 115/59 L 05/18/22 13:15 81 99 05/18/22 13:14 80 115/56 L 05/18/22 12:01 16 05/18/22 12:01 97.9 F 16 05/18/22 13:10 75 100 05/18/22 13:05 99 05/18/22 13:05 83 05/18/22 13:05 86 114/73 05/18/22 13:03 84 113/68 05/18/22 13:00 92 H 20 98 05/18/22 13:01 81 125/76 05/18/22 12:59 89 112/69 05/18/22 12:57 90 117/69 05/18/22 12:55 81 112/65 99 05/18/22 12:53 80 112/66 05/18/22 12:51 83 111/68 05/18/22 12:50 81 99 05/18/22 12:49 83 115/75 05/18/22 12:47 22 05/18/22 12:47 83 22 112/74 05/18/22 12:45 83 109/63 100 05/18/22 12:40 83 99 05/18/22 12:35 92 H 99 05/18/22 12:30 76 100 08/31/22 12:25 77 99 05/18/22 12:24 74 120/86 05/18/22 12:20 81 100 05/18/22 12:15 78 99 05/18/22 11:24 16 05/18/22 11:24 16 05/18/22 11:23 77 106/67 05/18/22 10:25 16 05/18/22 10:25 16 05/18/22 10:24 78 102/56 L 05/18/22 08:05 16 05/18/22 08:05 16 05/18/22 09:23 79 16 111/61 05/18/22 08:04 81 113/59 L 05/18/22 07:50 97.9 F 16 O2 Del Method 05/18/22 17:00 Room Air 05/18/22 16:45 05/18/22 15:45 05/18/22 16:15 05/18/22 15:30 05/18/22 15:15 05/18/22 16:50 05/18/22 16:50 05/18/22 16:50 05/18/22 16:45 05/18/22 16:40 05/18/22 16:35 05/18/22 16:34 05/18/22 16:30 05/18/22 16:25 05/18/22 16:20 05/18/22 16:19 05/18/22 16:15 05/18/22 16:10 05/18/22 16:05 05/18/22 16:04 05/18/22 16:00 05/18/22 15:55 05/18/22 15:50 05/18/22 15:49 05/18/22 15:45 05/18/22 15:40 05/18/22 15:35 05/18/22 15:34 05/18/22 15:30 05/18/22 15:25 05/18/22 15:20 05/18/22 15:19 05/18/22 15:15 05/18/22 15:10 05/18/22 15:05 05/18/22 15:04 05/18/22 15:00 05/18/22 14:55 05/18/22 14:50 05/18/22 14:45 05/18/22 14:40 05/18/22 14:36 05/18/22 14:35 05/18/22 14:30 05/18/22 14:25 05/18/22 14:20 05/18/22 14:15 05/18/22 14:01 05/18/22 14:01 05/18/22 14:10 05/18/22 14:05 05/18/22 14:02 05/18/22 14:00 05/18/22 13:55 05/18/22 13:50 05/18/22 13:45 05/18/22 13:40 05/18/22 13:35 05/18/22 13:30 05/18/22 13:25 05/18/22 13:26 05/18/22 13:20 05/18/22 13:21 05/18/22 13:16 05/18/22 13:15 05/18/22 13:14 05/18/22 12:01 05/18/22 12:01 05/18/22 13:10 05/18/22 13:05 05/18/22 13:05 05/18/22 13:05 05/18/22 13:03 05/18/22 13:00 05/18/22 13:01 05/18/22 12:59 05/18/22 12:57 05/18/22 12:55 05/18/22 12:53 05/18/22 12:51 05/18/22 12:50 05/18/22 12:49 05/18/22 12:47 05/18/22 12:47 05/18/22 12:45 05/18/22 12:40 05/18/22 12:35 05/18/22 12:30 05/18/22 12:25 05/18/22 12:24 05/18/22 12:20 05/18/22 12:15 05/18/22 11:24 05/18/22 11:24 05/18/22 11:23 05/18/22 10:25 05/18/22 10:25 05/18/22 10:24 05/18/22 08:05 05/18/22 08:05 05/18/22 09:23 05/18/22 08:04 05/18/22 07:50 Pain Intensity Bilateral Abdomen: Pain Intensity: 2
[2022-05-18] MEDS: DOCUSATE SODIUM 100 MG CAP PO SCH (20:07)
[2022-05-18] MEDS: IBUPROFEN 600 MG TAB PO PRN (23:34)
--- NOTE | 2022-05-19 07:03 | Obstetrical Progress Note ---
Date of Service <Devika Ahuja MD - Last Filed: 05/19/22 08:02> May 19, 2022 Assessment & Plan <Devika Ahuja MD - Last Filed: 05/19/22 08:02> (1) Encounter for care and examination after delivery: Plan PPD1 - PNC c/b GDM GBS-, RI, Rh+ Satisfactory progress Encourage ambulation Follow up 6 weeks <Noemy Jones MD, FACOG - Last Filed: 05/19/22 08:08> (1) Encounter for care and examination after delivery: Day #:: 1 Subjective <Devika Ahuja MD - Last Filed: 05/19/22 08:02> Ambulation: ambulating normally Voiding: no voiding problems Passing Gas:: Yes Diet Tolerance:: regular diet Lochia:: Small Feeding Type:: breast feeding Physical Exam <Devika Ahuja MD - Last Filed: 05/19/22 08:02> Constitutional WD/WN, vitals as above Respiratory normal respiratory effort, lungs clear to auscultation Cardiovascular RRR, no murmur, no edema no calf tenderness Gastrointestinal (Abdomen) uterine fundus firm at the level of the umbilicus, slightly tender on exam Psychiatric A+Ox3, euthymic affect Results & Data ([facility]) <Devika Ahuja MD - Last Filed: 05/19/22 08:02> Vital Signs (Past 12 Hours) Vital Signs Temp Pulse Resp BP 05/19/22 04:40 36.5 C 86 18 110/69 05/18/22 23:37 36.3 C L 80 18 102/69 05/18/22 20:09 36.7 C 93 H 18 109/70 <Noemy Jones MD, FACOG - Last Filed: 05/19/22 08:08> Co-Signing Physician Notes Resident Physician Supervision Note: I was present with Dr. Ahuja during the history and exam. I discussed the case with the resident and agree with the findings and plan as documented in the note. Any exceptions or clarifications are listed here: doing well, some uterine cramps. eating, voiding well. . abd soft ff 2 down nt, ext nt calves. ppd#1, s/p , routine care. rhpos, ri, . Documented By: Noemy Jones MD, FACOG Resident Activity Tracking <Devika Ahuja MD - Last Filed: 05/19/22 08:02> Resident Involvement: Resident Care Provided Care Provided: Adult [facility] Medicine
[2022-05-19] MEDS: IBUPROFEN 600 MG TAB PO PRN ×2 (09:04→20:05)
[2022-05-19] MEDS: DOCUSATE SODIUM 100 MG CAP PO SCH ×2 (09:05→20:05)
[2022-05-19] MEDS: PRENATAL VITAMIN 1 TAB PO SCH (09:05)
[2022-05-20] MEDS: IBUPROFEN 600 MG TAB PO PRN (00:14)
--- NOTE | 2022-05-20 06:40 | Obstetrical Progress Note ---
Date of Service <Devika Ahuja MD - Last Filed: 05/20/22 06:59> May 20, 2022 Assessment & Plan <Devika Ahuja MD - Last Filed: 05/20/22 06:59> (1) Encounter for care and examination after delivery: Plan PPD2 - PNC c/b GDM GBS-, RI, Rh+ Satisfactory progress Encourage ambulation. Cleared for discharge this morning. Follow up 6 weeks <Yesi Márquez MD, FACOG - Last Filed: 05/20/22 07:24> (1) Encounter for care and examination after delivery: Subjective <Devika Ahuja MD - Last Filed: 05/20/22 06:59> Ambulation: ambulating normally Voiding: no voiding problems Passing Gas:: Yes Diet Tolerance:: regular diet Lochia:: Small Feeding Type:: breast feeding Physical Exam <Devika Ahuja MD - Last Filed: 05/20/22 06:59> Constitutional WD/WN, vitals as above Respiratory normal respiratory effort, lungs clear to auscultation Cardiovascular RRR, no murmur, no edema no calf tenderness Psychiatric A+Ox3, euthymic affect Genitourinary uterine fundus firm 1 cm below the level of the umbilicus, nt Results & Data ([facility]) <Devika Ahuja MD - Last Filed: 05/20/22 06:59> Vital Signs (Past 12 Hours) Vital Signs Temp Pulse Resp BP Pulse Ox O2 Del Method 05/19/22 22:55 36.8 C 84 18 100/65 96 Room Air 05/19/22 19:23 36.4 C L 93 H 16 116/74 99 Room Air <Yesi Márquez MD, FACOG - Last Filed: 05/20/22 07:24> Co-Signing Physician Notes Resident Physician Supervision Note: I interviewed and examined the patient. Discussed with Dr. Ahuja and agree with findings and plan as documented in the note. Any exceptions or clarifications are listed here: [None] Documented By: Yesi Márquez MD, FACOG Resident Activity Tracking <Devika Ahuja MD - Last Filed: 05/20/22 06:59> Resident Involvement: Resident Care Provided Care Provided: Adult [facility] Medicine
[2022-05-20] MEDS: PRENATAL VITAMIN 1 TAB PO SCH (07:36)
[2022-05-20] MEDS: DOCUSATE SODIUM 100 MG CAP PO SCH (07:36)
== END 2022-05-20 10:45 | disposition home or self-care (01) | DRG 807 ==
LOC: 4S1 07:45 → 4E2 16:50

== ENCOUNTER 2025-07-15 08:30 | Inpatient (IN) ==
[2025-07-15] MEDS ORDERED: OXYTOCIN 30 UNITS/NSS 30 UNITS/500 ML BAG IV PRN (08:34)
[2025-07-15] MEDS ORDERED: CALCIUM CARBONATE 500 MG CHEWABLE TAB PO PRN (08:34)
[2025-07-15] MEDS ORDERED: LIDOCAINE 1% LOCAL 20 ML VIAL INFIL PRN (08:34)
[2025-07-15] MEDS: LACTATED RINGER'S 1,000 ML IV PRN (09:00)
[2025-07-15 09:03] LABS: Hematocrit (blood only) 36.5 % (37.0-47.0); Hemoglobin 11.7 g/dl (12.0-16.0); Mean Corpuscular Hemoglobin 28.2 pg (25.0-34.0); Mean Corpuscular Volume 88.0 fL (80.0-100.0); Platelet Count 258 K/uL (130-400); RDW Standard Deviation 44.0 fL (36.4-46.3); Red Blood Count 4.15 M/uL (4.20-5.40); White Blood Count 9.83 K/ul (4.8-10.8)
--- NOTE | 2025-07-15 09:09 | History & Physical Report ---
Date of Service July 15, 2025 Assessment & Plan (1) Group beta Strep positive: (2) H/O shoulder dystocia in prior , currently : (3) Gestational diabetes mellitus (GDM) affecting , antepartum: (4) AMA (advanced maternal age) primigravida 35+: (5) Encounter for induction of labor: Plan 35 yo at 39w3d admitted for IOL for postdates. Patient is in no acute distress. Patient was tested positive for GBS in her urine. Will order penicillin. Has gestational diabetes. Will continue to monitor. Will use Pitocin and break AROM to induce labor. Heart Assessment is Cat. I. Admission and Anticipated Discharge Date Admission Date: July 15, 2025 History of Present Illness Chief Complaint: IOL Primary Care Provider: MAURO PCP 35 yo at 39w3d admitted for IOL for postdates. Patient reports she can feel contractions but are irregular, feels movement, and has had regular care. Denies fluid loss, and bloody show. Denies fevers/chills/sweats, Headache, CP, SOB, LE pain, breast pain, dysuria. GBS+, RH+ AMA Weekly NST's @ 36 weeks shoulder dystocia with 2nd Hepatitis B -not immune GBS + urine-treat in labor LGA 36wks EFW 95% AC >98% *IOL 07/15 Labs Lab Results OB Labs: Blood Type O Positive 12/27/24 Antibody Screen NEGATIVE 12/27/24 Hgb 11.1 g/dl (12.0-16.0) L 04/28/25 Hct 33.9 % (37.0-47.0) L 04/28/25 MCV 91.7 fL (80.0-100.0) 12/27/24 Plt Count 241 K/uL (130-400) 12/27/24 Rubella IgG Antibody Immune (Immune) 12/27/24 RPR Nonreactive (Nonreactive) 10/18/21 Treponema pallidum Ab Negative (Negative) 04/28/25 Hep Bs Antigen Negative (Negative) 12/27/24 Hepatitis C Antibody Negative (Negative) 12/27/24 HIV 1&2 Ab/P24 Ag 4thGn Negative (Negative) 12/27/24 Glucose 1 Hr 50 gm 144 mg/dl (70-130) H 12/07/21 OB Optional Labs: Chlamydia trachomatis RNA Not Detected (NotDetected) 12/27/24 Neisseria gonorrhoeae RNA Not Detected (NotDetected) 12/27/24 Labs Reviewed: cfdna-low risk--mln declines carrier screening--mln Allergies Allergy/AdvReac Type Severity Reaction Status Date / Time No Known Allergies Allergy Verified 07/14/25 15:45 Home Medications Medication Instructions Recorded Confirmed Type prenat.vits,italia,jsu-boaj-masht 1 tab PO DAILY 10/15/21 07/15/25 History acetone (urine) test (Ketone Urine #50 ea 02/28/25 07/14/25 Rx Test strips) Accu-Chek Guide Glucose Meter #1 ea 04/07/25 07/14/25 Rx (blood-glucose meter) Accu-Chek Guide test strips (blood #150 ea 04/07/25 07/14/25 Rx sugar diagnostic) Accu-Chek Softclix Lancets #200 ea 04/07/25 07/14/25 Rx (lancets) Patient History Medical History (Updated 07/15/25 @ 09:05 by Naif East DO) History of chicken pox Anemia Surgical History No history of previous surgery Family History Mother Heart disease Grandmother (Maternal) Heart disease Father Hypertension Diabetes Denies family history of Ovarian cancer Prostate cancer Breast cancer Social History Smoking Status: Never smoker Second Hand Exposure: No; Do You Dip or Chew Tobacco: No; Hx Alcohol Use: No Hx Substance Use: No Preferred Language: Chinese Communication Ability: Effective 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 Date GA wks Lbr Lgth wt Sex Type del Anes Place Del Prov ? Comment 04/02/17 41 8lbs 2oz M Epid ural [facility] Dr. Kaplan No 06/01/18 41 8lbs 5.8oz F Ep [facility] Cristin No Shoulder Dystocia 05/18/22 39 6lb 15.7oz F Ep [facility] Dr. 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 Unremarkable Review of Systems as per Subjective HPI Physical Exam Constitutional: well developed and well nourished Eyes: + anicteric sclerae and EOM intact bilat erally Respiratory: normal respiratory effort, lungs clear to auscultation Cardiovascular: RRR, no murmur, no edema Extremities: no calf tenderness Gastrointestinal (Abdomen): Percussion/Palpation: abdomen soft; abdomen nontender Skin: no rashes, warm and dry Psychiatric: Eye Contact: good eye contact Speech: normal rate/rhythm/volume of speech Thought Process: goal directed thought process and linear/logical thought process Genitourinary: OB Exam Monitor Tracing: + category I exam per Dr. Jones. Results & Data Vital Signs (Past 12 Hours) Vital Signs Pulse BP 07/15/25 08:41 86 116/62 Laboratory Results Lab Results 07/15/25 Range/Units 08:43 WBC 9.83 (4.8-10.8) K/ul RBC 4.15 L (4.20-5.40) M/uL Hgb 11.7 L (12.0-16.0) g/dl Hct 36.5 L (37.0-47.0) % MCV 88.0 (80.0-100.0) fL MCH 28.2 (25.0-34.0) pg MCHC 32.1 (32.0-36.0) g/dL RDW Std Deviation 44.0 (36.4-46.3) fL RDW Coeff of Dominic 13.8 (11.5-14.5) % Plt Count 258 (130-400) K/uL MPV 12.0 (9.4-12.4) fL Monitoring External Monitor Baseline: 145 Variability: Minimal Accels: Present Early Decels: None Variable Decels: None Late Decels: None Tocodynamometer Interval: Irregular Duration: 1 minute and 30 seconds Supervising Physician Co-Signing Physician Notes Resident Physician Supervision Note: I was present with Dr. East during the history and exam. I discussed the case with the resident and agree with the findings and plan as documented in the note. Any exceptions or clarifications are listed here: 35yo at 39+wks egdenny presents to LD for planned induction of labor with h/o LGA fetus, gdm and h/o moderate shoulder dystocia. Patient notes some stronger ctx overnight. No Rom, no vb. +Fm. This is new fob. Pt had shoulder dystocia with baby #2 who was 8#5oz, documented as moderate lasting 90sec. Her 3rd baby i delivered but she was 6+#. PNC c/b 1. AMA 2. GDM diet controlled 3. H/o moderate shoulder dystocia 4. LGA, efw >98% at last u/s 5. GBS positive PNL rhpos, ri, gbs + OBH: x 3, shoulder dystocia with baby #2 as noted. new fob EXAM: Abd: soft gravid nt efw 9# Ext: no edema TOCO: irregular ctx FHTS: categ 1 SVE: 4/50/-2 mid soft A/P term induction, lga, gdm, h/o shoulder dystocia Have reviewed with couple my concerns for induction of labor with above circumstances in background of known h/o shoulder dystocia in light of larger baby than previous. Based on last growth u/s this baby projected to be approx 4200gm. She seems to suggest that she had gdm last time and had a small baby and hoping for the same but I tried to explain the last baby was measuring by our growth u/s completely different than this baby. This baby is large. She says she wants induction despite my concerns. She wants to see how it goes, but if shoulder dystocia encountered i explained it can be too late to change course. She is aware previously and again today about risks to baby like humerus or clavicle fracture, distress, other injury, delay in delivery resulting in , injury or damage to maternal structures, essentially catastrophic events are possible. She is aware that this is not a scenario that we will plan any assisted delivery due to risks. She has been offered c/s on numerous occasions and again today and declines, she wants to proceed with induction. PCN infusing, start pitocin, arom when appropriate. Documented By: Noemy Jones MD, FACOG
[2025-07-15] MEDS: PENICILLIN GK 6 MU in DEXTROSE 5% 250 ML IV STA (09:10)
[2025-07-15] MEDS: OXYTOCIN 30 UNITS/NSS 30 UNITS/500 ML BAG IV PRN ×2 (10:08→15:50)
--- NOTE | 2025-07-15 12:53 | Labor Progress Brief Note ---
Date of Service July 15, 2025 Subjective feels ctx but denies pain. Assessment & Plan (1) Encounter for induction of labor: (2) AMA (advanced maternal age) primigravida 35+: (3) Group beta Strep positive: (4) H/O shoulder dystocia in prior , currently : (5) Gestational diabetes mellitus (GDM) affecting , antepartum: Plan will see how arom helps labor pattern. fhts categ 1. c/w pit. epidural when de sires. Admission and Anticipated Discharge Date Admission Date: July 15, 2025 Physical Exam Constitutional: WD/WN, vitals as above Genitourinary: Manual OB Exam: + cervical dilation 4 cm, + cervical effacement 50%, + station -2 and + amniotic fluid (arom) meconium OB Exam Monitor Tracing: + external FHT monitor used, + external uterine monitor used (q2-3), + category I and + normal FHT variability Results & Data Vital Signs (Past 12 Hours) Vital Signs Temp Pulse Resp BP 07/15/25 12:09 93 H 07/15/25 12:09 112/56 L 07/15/25 12:00 18 07/15/25 12:00 18 07/15/25 11:30 20 07/15/25 11:30 98.1 F 20 07/15/25 11:22 83 07/15/25 11:22 110/64 07/15/25 11:00 16 07/15/25 11:00 16 07/15/25 10:30 18 07/15/25 10:30 18 07/15/25 10:11 85 07/15/25 10:11 111/68 07/15/25 10:00 18 07/15/25 10:00 18 07/15/25 09:00 18 07/15/25 09:00 18 07/15/25 08:56 98.1 F 20 07/15/25 08:41 86 116/62 Coding Level of Care Code None Diagnoses Encounter for induction of labor Z34.90 AMA (advanced maternal age) primigravida 35+ O09.519 Group beta Strep positive B95.1 H/O shoulder dystocia in prior , currently O09.299 Gestational diabetes mellitus (GDM) affecting , antepartum O24.419
[2025-07-15] MEDS: PENICILLIN GK 3 MU in DEXTROSE 5% 100 ML IV PRN (13:05)
[2025-07-15] MEDS ORDERED: LIDOCAINE 2% MPF LOCAL 5 ML VIAL EPI PRN (13:19)
[2025-07-15] MEDS ORDERED: NALBUPHINE HCL INJ 10 MG/ML AMP IV PRN (13:19)
[2025-07-15] MEDS ORDERED: NALOXONE HCL 0.4 MG/1 ML VIAL/CARP IV PRN (13:19)
[2025-07-15] MEDS ORDERED: fentANYL 2 MCG/ML BUPIVacaine 0.125%-NSS 100ML BAG EPI PRN (13:19)
[2025-07-15] MEDS ORDERED: diphenhydrAMINE 50 MG/ML VIAL IV PRN (13:19)
[2025-07-15] MEDS ORDERED: ONDANSETRON INJ 2 MG/ML 2 ML VIAL IV PRN (13:19)
[2025-07-15] MEDS ORDERED: ROPIVACAINE 0.5% PF 5 MG/ML 20 ML VIAL EPI PRN (13:19)
[2025-07-15] MEDS ORDERED: NALOXONE HCL 1 MG in SODIUM CHLORIDE 0.9% 1,000 ML IV PRN (13:19)
[2025-07-15] MEDS ORDERED: SODIUM CHLORIDE 0.9% PF INJ 10 ML VIAL EPI PRN (13:19)
[2025-07-15] MEDS ORDERED: BUPIVACAINE 0.25% PF 30 ML VIAL EPI PRN (13:19)
--- NOTE | 2025-07-15 13:19 | Anesthesiology Consultation ---
Date of Service July 15, 2025 Assessment & Plan (1) Encounter for pre-operative examination: Chart Review Chart Review: Patient NOT seen in Pre Admission Testing and Acceptable Risk for Labor Epidural Consults Requested none History Height/Weight Height: 5 ft 4 in Weight: 76.204 kg Allergies Allergy/AdvReac Type Severity Reaction Status Date / Time No Known Allergies Allergy Verified 07/14/25 15:45 Medications Home Medications Medication Instructions Recorded Confirmed Last Taken prenat.vits,italia,pqe-pqxc-lebhu 1 tab PO DAILY 10/15/21 07/15/25 07/14/25 acetone (urine) test (Ketone Urine #50 ea 02/28/25 07/14/25 Unknown Test strips) Accu-Chek Guide Glucose Meter #1 ea 04/07/25 07/14/25 Unknown (blood-glucose meter) Accu-Chek Guide test strips (blood #150 ea 04/07/25 07/14/25 Unknown sugar diagnostic) Accu-Chek Softclix Lancets #200 ea 04/07/25 07/14/25 Unknown (lancets) Active Medications Generic Name Dose Route Start Last Admin Trade Name Freq PRN Reason Stop Dose Admin Oxytocin 30 units in 500 mls @ 7 mls/hr 07/15/25 08:34 07/15/25 12:20 Pitocin 30 Units/Nss IV 07/17/25 08:33 0.42 units/hr .Q24H PRN 7 mls/hr Labor Induction/Augmentation Titration Protocol 0.42 UNITS/HR Lactated Ringer's 1,000 mls @ 125 mls/hr 07/15/25 08:34 07/15/25 12:50 Lr IV 07/17/25 08:33 999 mls/hr .Q8H PRN Infusion L&D Protocol Protocol Penicillin G Potassium 3 mu/ 106 mls @ 100 mls/hr 07/15/25 12:30 07/15/25 13:05 Dextrose IV 07/25/25 12:29 100 mls/hr Q4H PRN Administration GBS(+) Until Delivery Past Medical History Medical History History of chicken pox Anemia Past Family History Family History Mother Heart disease Grandmother (Maternal) Heart disease Father Hypertension Diabetes Denies family history of Ovarian cancer Prostate cancer Breast cancer Past Surgical History Surgical History No history of previous surgery Social History Smoking Status: Never smoker Do You Dip or Chew Tobacco: No Hx Alcohol Use: No Hx Substance Use: No substance use type: does not use Physical Exam Vital Signs Last Vital Signs Temp 98.1 F 07/15/25 11:30 Pulse 82 07/15/25 13:17 Resp 20 07/15/25 12:30 BP 112/56 L 07/15/25 12:09 Pulse Ox 87 L 07/15/25 13:17 Testing Laboratory Results 07/15/25 08:43 Blood Type O Positive 07/15/25 08:43 Antibody Screen NEGATIVE 07/15/25 08:43 07/15/25 10:29 POC Glucose 114 H
[2025-07-15] MEDS: fentANYL 2 MCG/ML BUPIVacaine 0.125%-NSS 100ML BAG ONE ×2 (13:37→14:49)
[2025-07-15] MEDS: BUPIVACAINE 0.25% PF 30 ML VIAL ONE ×2 (13:50→14:46)
[2025-07-15] MEDS: LIDOCAINE 2%/EPINEPHRINE 1:200,000 20 ML PF ONE ×2 (13:50→14:49)
[2025-07-15] MEDS: SODIUM CHLORIDE 0.9% PF INJ 10 ML VIAL ONE ×2 (14:05→14:49)
[2025-07-15] MEDS: SODIUM CHLORIDE 0.9% PF INJ 10 ML VIAL EPI STA (14:06)
[2025-07-15] MEDS: BUPIVACAINE 0.25% PF 30 ML VIAL EPI STA (14:06)
[2025-07-15] MEDS: LIDOCAINE 2%/EPINEPHRINE 1:200,000 20 ML PF EPI STA (14:06)
--- NOTE | 2025-07-15 14:22 | Labor Progress Brief Note ---
Date of Service July 15, 2025 Subjective feeling pain with ctx. epidural in place but may not be working yet. Assessment & Plan (1) Encounter for induction of labor: (2) AMA (advanced maternal age) primigravida 35+: (3) Group beta Strep positive: (4) H/O shoulder dystocia in prior , currently : (5) Gestational diabetes mellitus (GDM) affecting , antepartum: Plan some cx change. may need to position change due to variables and/or plan amnioinfusion. fhts categ 2. c/w pit. anesthesia working on helping pain relief. Admission and Anticipated Discharge Date Admission Date: July 15, 2025 Physical Exam Constitutional: WD/WN, vitals as above Genitourinary: Manual OB Exam: + cervical dilation 6 cm, + cervical effacement 80% and + station -1 OB Exam Monitor Tracing: + external FHT monitor used, + external uterine monitor used, + category II, + normal FHT variability and + variable decelerations Results & Data Vital Signs (Past 12 Hours) Vital Signs Temp Pulse Resp BP Pulse Ox 07/15/25 14:16 100 H 07/15/25 14:16 125/79 07/15/25 14:14 100 07/15/25 14:14 82 07/15/25 14:11 85 07/15/25 14:11 141/51 H 07/15/25 14:09 100 07/15/25 14:09 87 07/15/25 14:08 85 07/15/25 14:08 132/61 07/15/25 14:04 100 07/15/25 14:04 79 07/15/25 14:04 123/62 07/15/25 14:02 81 07/15/25 14:02 124/60 07/15/25 14:00 84 07/15/25 14:00 121/64 07/15/25 13:59 100 07/15/25 13:59 84 07/15/25 13:58 78 07/15/25 13:58 119/58 L 07/15/25 13:56 80 07/15/25 13:56 139/87 07/15/25 13:54 100 07/15/25 13:54 90 07/15/25 13:52 76 07/15/25 13:52 130/76 07/15/25 13:50 84 07/15/25 13:50 129/75 07/15/25 13:49 100 07/15/25 13:49 86 07/15/25 13:48 94 H 07/15/25 13:48 149/77 H 07/15/25 13:46 85 07/15/25 13:46 125/70 07/15/25 13:45 81 07/15/25 13:45 128/70 07/15/25 13:44 100 07/15/25 13:44 83 07/15/25 13:39 100 07/15/25 13:39 104 H 07/15/25 13:39 130/77 07/15/25 13:38 81 07/15/25 13:38 123/75 07/15/25 13:34 100 07/15/25 13:34 91 H 07/15/25 13:29 100 07/15/25 13:29 81 07/15/25 13:24 99 07/15/25 13:24 84 07/15/25 13:19 98 07/15/25 13:19 81 07/15/25 13:17 87 L 07/15/25 13:17 82 07/15/25 12:30 20 07/15/25 12:30 20 07/15/25 12:09 93 H 07/15/25 12:09 112/56 L 07/15/25 12:00 18 07/15/25 12:00 18 07/15/25 11:30 20 07/15/25 11:30 98.1 F 20 07/15/25 11:22 83 07/15/25 11:22 110/64 07/15/25 11:00 16 07/15/25 11:00 16 07/15/25 10:30 18 07/15/25 10:30 18 07/15/25 10:11 85 07/15/25 10:11 111/68 07/15/25 10:00 18 07/15/25 10:00 18 07/15/25 09:00 18 07/15/25 09:00 18 07/15/25 08:56 98.1 F 20 07/15/25 08:41 86 116/62 Coding Level of Care Code None Diagnoses Encounter for induction of labor Z34.90 AMA (advanced maternal age) primigravida 35+ O09.519 Group beta Strep positive B95.1 H/O shoulder dystocia in prior , currently O09.299 Gestational diabetes mellitus (GDM) affecting , antepartum O24.419
--- NOTE | 2025-07-15 15:19 | Delivery Summary ---
Vaginal Delivery Summary Date of Service July 15, 2025 Vaginal Delivery Summary Deep variable decels noted, pt recently s/p spinal-epidural combo and now feeling more relief. Was 9+cm for nurse. Exam at bedside on my arrival with ant lip and held back and with one push reduced and cephalic quickly to +2-+3 station. The patient was then readied for delivery and pushed to deliver a viable male Apgars 8 and 8 via over intact perineum. Cephalic delivered and with gentle downward traction and effective maternal expulsive efforts the anterior shoulder was delivered. A loose nuchal cord was noted and delivered through. Shoulders and body delivered with ease. Infant was vigorous and cried at . Mouth and nose bulb suctioned. Cord clamped and to maternal abdomen where the cord was then doubly clamped and cut. Infant crying at this point spontaneously. Placenta delivered spontaneously and intact, three-vessel cord. Hemostasis achieved with dilute pitocin and uterine massage and 1000mcg of rectal cytotec. Cervix and sulci intact. QBL 254cc. Mother and baby stable in recovery. Circumstances of delivery reviewed with patient and father of baby, they deny questions. [facility] [place] Vaginal Delivery Charge Delivery Type Details:
[2025-07-15] MEDS ORDERED: HYDROCORTISONE ACETATE 25 MG SUPP PR PRN (15:26)
[2025-07-15] MEDS ORDERED: BENZOCAINE 20% SPRY 85 APPLN/85 GM CAN EXT PRN (15:26)
[2025-07-15] MEDS ORDERED: OXYTOCIN 20 UNITS in LACTATED RINGER'S 1,000 ML IV SCH (15:30)
[2025-07-15] MEDS: OXYTOCIN 20 UNITS in LACTATED RINGER'S 1,000 ML IV SCH (17:19)
--- NOTE | 2025-07-15 17:25 | Anesthesia Procedure Note ---
Date of Service July 15, 2025 Anesthesia Post Epidural Note Vital Signs Vital Signs: Temp Pulse Resp BP Pulse Ox 98.1 F 98 H 16 143/70 H 100 07/15/25 15:55 07/15/25 16:40 07/15/25 15:55 07/15/25 16:40 07/15/25 15:09 Notes Mental Status: alert / awake / arousable and participated in evaluation Nausea / Vomiting: adequately controlled Pain: adequately controlled Airway Patency, RR, SpO2: stable & adequate BP & HR: stable & adequate Hydration State: stable & adequate Neuraxial Anesthesia: was administered and sensory block is resolving Anesthetic Complications: no major complications apparent and Pt Satisfied with anesthetic care Epidural: Removed without complications and With tip intact
[2025-07-15] MEDS: IBUPROFEN 600 MG TAB PO PRN (17:58)
[2025-07-15] MEDS: ACETAMINOPHEN 325 MG TAB PO PRN (19:24)
[2025-07-15] MEDS: DOCUSATE SODIUM 100 MG CAP PO SCH (19:25)
[2025-07-15] MEDS: DIPHTHER/TETAN/PERTUS Vaccine (Tdap, Adol/Adult) 0.5mL IM ONE (20:51)
[2025-07-16 06:44] LABS: Hematocrit (blood only) 31.7 % (37.0-47.0); Hemoglobin 10.5 g/dl (12.0-16.0)
[2025-07-16] MEDS: PRENATAL VITAMIN 1 TAB PO SCH (07:18)
--- NOTE | 2025-07-16 08:09 | Obstetrical Progress Note ---
Date of Service July 16, 2025 Assessment & Plan (1) care and examination: Plan stable, doing well. eating, voiding, ambulating. breast/rhpos/ri. routine care. Subjective Ambulation: ambulating normally Voiding: no voiding problems Diet Tolerance:: regular diet Lochia:: Small Feeding Type:: breast feeding no pain issues. Constitutional: + as per Subjective / HPI Physical Exam Constitutional WD/WN, vitals as above Respiratory normal respiratory effort, lungs clear to auscultation Cardiovascular Rate/Rhythm: regular rate and regular rhythm Gastrointestinal (Abdomen) Inspection/Auscultation: abdomen normal to inspection Percussion/Palpation: abdomen soft Fundus firm 2cm down Musculoskeletal nt calves no edema Neurologic grossly normal Psychiatric A+Ox3, euthymic affect Results & Data Vital Signs (Past 12 Hours) Vital Signs Temp Pulse Resp BP Pulse Ox O2 Del Method 07/16/25 07:30 97.5 F L 84 19 115/80 97 Room Air 07/16/25 04:00 97.7 F 74 16 118/72 99 Room Air 07/15/25 23:15 98.4 F 83 16 117/75 99 Room Air
[2025-07-16 20:54] VITALS: RESP 18; O2SAT 98
--- NOTE | 2025-07-17 06:09 | Obstetrical Progress Note ---
Date of Service July 17, 2025 Assessment & Plan (1) care and examination: Plan: 35 yo post- day 2 s/p [] Fells well today. Vital signs stable Pain controlled with ibuprofen and Tylenol Hgb stable Discharge home today. Admission and Anticipated Discharge Date Admission Date: July 15, 2025 Supervising Physician Co-Signing Physician Notes Resident Physician Supervision Note: I interviewed and examined the patient. Discussed with Dr. East and agree with findings and plan as documented in the note. Any exceptions or clarifications are listed here: doing well PPD#2 from . Notes cramping, improves with ibuprofen. Ambulating, voiding, tolerating PO. Uterus firm, -1 from umbilcus, trace edema b/l LE. Plan for DC home today, precautions reviewed. Documented By: Fabi Lang MD Subjective 35 yo post- day 2 s/p [] Ambulation: ambulating normally Voiding: no voiding problems Passing Gas:: Yes Diet Tolerance:: regular diet Feeding Type:: bottle feeding Current Pain Level: 5-6/10 when she feels contractions. ibuprofen and Tylenol help with the pain. Resting comfortably this AM in NAD. Denies fevers/chills, MCCURDY, CP/palp, SOB/cough/wheezing, N/V, breast pain/dschrg, UTI Sx. Review of Systems Review of Systems: as per Subjective HPI Physical Exam Constitutional: well developed and well nourished Eyes: + anicteric sclerae and EOM intact bilat erally Respiratory: normal respiratory effort, lungs clear to auscultation Cardiovascular: Rate/Rhythm: regular rate and regular rhythm Heart Sounds: normal S1 and normal S2; no murmur Extremities: + edema (trace B/L); no calf tenderness Gastrointestinal (Abdomen): Percussion/Palpation: abdomen soft; abdomen nontender Skin: no rashes, warm and dry Psychiatric: Eye Contact: good eye contact Speech: normal rate/rhythm/volume of speech Thought Process: goal directed thought process and linear/logical thought process Genitourinary: uterus is @ level of umbilicus Results & Data Vital Signs (Past 12 Hours) Vital Signs Temp Pulse Resp BP Pulse Ox O2 Del Method 07/17/25 01:32 36.3 C L 73 18 125/85 98 Room Air 07/16/25 19:39 36.4 C L 91 H 18 110/71 98 Room Air Laboratory Results Lab Results 07/15/25 07/15/25 07/15/25 Range/Units 08:43 10: 14:04 WBC 9.83 (4.8-10.8) K/ul RBC 4.15 L (4.20-5.40) M/uL Hgb 11.7 L (12.0-16.0) g/dl Hct 36.5 L (37.0-47.0) % MCV 88.0 (80.0-100.0) fL MCH 28.2 (25.0-34.0) pg MCHC 32.1 (32.0-36.0) g/dL RDW Std Deviation 44.0 (36.4-46.3) fL RDW Coeff of Dominic 13.8 (11.5-14.5) % Plt Count 258 (130-400) K/uL MPV 12.0 (9.4-12.4) fL POC Glucose 114 H 110 H (70-99) mg/dl Treponema pallidum Ab Negative (Negative) Blood Type O Positive Antibody Screen NEGATIVE 07/16/25 Range/Units 06:14 WBC (4.8-10.8) K/ul RBC (4.20-5.40) M/uL Hgb 10.5 L (12.0-16.0) g/dl Hct 31.7 L (37.0-47.0) % MCV (80.0-100.0) fL MCH (25.0-34.0) pg MCHC (32.0-36.0) g/dL RDW Std Deviation (36.4-46.3) fL RDW Coeff of Dominic (11.5-14.5) % Plt Count (130-400) K/uL MPV (9.4-12.4) fL POC Glucose (70-99) mg/dl Treponema pallidum Ab (Negative) Blood Type Antibody Screen
[2025-07-17 08:35] VITALS: BP 117/82; PULSE 84; TEMP 98.1
== END 2025-07-17 11:32 | disposition home or self-care (01) | DRG 807 ==
LOC: 4S1 08:30 → 4E2 18:00